=== PATIENT | female | born 1985 | race Caucasian/White ===

== ENCOUNTER 2023-04-18 08:54 | Emergency (ER) | payer MEDICAID ==
[~2023-04-18] VITALS: Ht 162.6 cm; Wt 111.1 kg
[2023-04-18 09:11] VITALS: BP 136/88; PULSE 73; RESP 14; TEMP 97.4; O2SAT 100
[2023-04-18] MEDS ORDERED: FLUORESCEIN OPTH STRIP 1 MG OP ONE (10:20)
[2023-04-18 10:27] VITALS: BP 141/81; PULSE 73; RESP 18; O2SAT 100
[2023-04-18] MEDS ORDERED: AZEL6SOL6 OP (11:29)
== END 2023-04-18 11:44 | disposition home or self-care (01) ==
LOC: MED 08:54
DX: H10.13 Acute atopic conjunctivitis, bilateral (principal); E11.9 Type 2 diabetes mellitus without complications; Z79.899 Other long term (current) drug therapy
CPT/HCPCS: 99283